=== PATIENT | female | born 1970 | race Caucasian/White ===

== ENCOUNTER 2020-03-06 08:05 | Outpatient (CLI) | payer OTHER, SELFPAY ==
--- NOTE | ~2020-03-06 | XR_ITS ---
EXAMINATION: XR wrist LT min 3V DATE: 03/06/2020 08:46 INDICATION: Left wrist pain. TECHNIQUE: 4 views of left wrist were obtained. COMPARISON: None. FINDINGS: Bone alignment is normal. No fracture. There is mild osteoarthritis of first carpometacarpa l joint. IMPRESSION: 1. Mild osteoarthritis of first carpometacarpal joint. Reviewed, dictated and finalized at location A. [employer] DIRECTOR
== END 2020-03-06 08:06 | disposition home or self-care (01) ==
PROVIDERS: PCP Internal Medicine; Visit Provider Nurse Practitioner
DX: M18.12 Unilateral primary osteoarthritis of first carpometacarpal joint, left hand (principal)
CPT/HCPCS: 73110

== ENCOUNTER 2022-10-12 17:48 | Emergency (ER) | payer OTHER, SELFPAY ==
[2022-10-12 17:57] VITALS: BP 126/90; PULSE 65; RESP 16; TEMP 36.4; O2SAT 98
--- NOTE | 2022-10-12 18:22 | ED.DIZZY ---
HPI - Dizziness General Chief Complaint: Dizziness Stated Complaint: Dizziness History of Present Illness HPI Narrative: 52-year-old female presents to the [facility] complaining of dizziness. Patient stated her symptoms started yesterday when she felt like the room was spinning. Patient states that dizziness is worse when she bends over. Patient also reports that ear tinnitus however that tinnitus is a chronic condition that she is seeing a ENT for in the past. Patient was recommended to get an MRI of her left ear by her ENT but she decided not to. Patient states she was seen any ENT near her work because it was more convenient for her and when the wound order outpatient imaging eyes is going to be more of it inconvenient for her. Patient states she would prefer to see an ENT more local however the 1 that she was referred to had a long wait time for an appointment and saw the ENT near her work first. Patient denies any headache, blurry vision, numbness, slurred speech, confusion, chest pain, lightheadedness, focal weakness, ear fullness, ear pain, fevers, or any other symptoms. Patient states she has never been diagnosed with vertigo but she states she has dealt with dizziness in the past. Related Data Home Medications Medication Instructions Recorded Confirmed cholecalciferol (vitamin D3) 125 125 mcg PO .COMPLEX 02/22/20 10/12/22 mcg (5,000 unit) capsule fluticasone propionate 50 1 spray intranasal Q12H 10/12/22 10/12/22 mcg/actuation nasal spray,suspension (Flonase Allergy Relief) Allergies Allergy/AdvReac Type Severity Reaction Status Date / Time No Known Allergies Allergy Verified 10/12/22 18:04 Review of Systems Review of Systems: CONSTITUTIONAL: Denies fever, chills, or sweats. EYES: Denies visual changes, redness, or discharge. ENT: Denies otalgia, ear fullness, and sore throat. Positive for left ear tinnitus. CARDIOVASCULAR: Denies chest pain, palpitations, or edema. RESPIRATORY: Denies cough or dyspnea. GASTROINTESTINAL: Denies abdominal pain, nausea, vomiting, or diarrhea. GENITOURINARY: Denies dysuria or hematuria. SKIN: Denies rash or itching. MUSCULOSKELETAL: Denies back pain, joint pain, or myalgia. NEUROLOGIC: Denies headache, numbness, or weakness. Positive for dizziness. Pertinent positives per HPI. [facility] Past Medical History Medical History (Updated 10/12/22 @ 18:29 by Zenaida Greco APRN) De Quervain's disease (radial styloid tenosynovitis) Family History Family History Father Tongue cancer Social History Social History Smoking packs per day: 0.5 Smoking cigarettes per day: 10.0 Years smoked: 30 Smoking pack-years: 15.00 Smoking status: Current every day smoker Tobacco type: cigarettes Alcohol intake: never Substance use: never Gender identity (if verbalized by the patient): Female Comments At the time of my signature, I reviewed and agree with the nursing past medical, surgical, social, and family history. There is no relevant family history pertinent to the patient complaint. Exam Narrative: GENERAL: This is a well-nourished, well-developed patient, in no apparent distress. HEAD: normocephalic, atraumatic. EYES: Sclera clear/white. Vision is grossly intact. No nystagmus present. EARS: External ears normal, auditory canals patent with moderate amount of cerumen present without impaction without drainage, TMs normal without perforation. Hearing grossly intact. NOSE: External nose normal with no obvious nasal discharge, nares without redness, no rhinorrhea. THROAT: Mucous membranes moist, posterior pharynx clear. NECK: Neck supple, non-tender without lymphadenopathy, masses or thyromegaly. CARDIOVASCULAR: Regular rate and rhythm without murmurs, gallops, or rubs. RESPIRATORY: Clear to auscultation. Breath sounds equal bilaterally. No whe
== END 2022-10-12 18:32 | disposition home or self-care (01) ==
PROVIDERS: Emergency Provider Nurse Practitioner Family; PCP Internal Medicine
DX: R42 Dizziness and giddiness (principal); F17.210 Nicotine dependence, cigarettes, uncomplicated
CPT/HCPCS: 99213; G0463

== ENCOUNTER 2022-12-16 07:45 | Outpatient (CLI) | payer OTHER, SELFPAY | END 2022-12-16 07:46 | disposition home or self-care (01) | LOC: ANHBWCAUD 07:46 | PROVIDERS: PCP Internal Medicine; Visit Provider Otolaryngology | DX: H93.12 Tinnitus, left ear (principal) | CPT/HCPCS: 99199 ==

== ENCOUNTER 2024-03-10 08:34 | Outpatient (CLI) | payer OTHER, SELFPAY ==
--- NOTE | ~2024-03-10 | US_ITS ---
EXAMINATION: US pelvic complete w TV INDICATION: Bloating. Comparison:No prior studies for comparison. TECHNIQUE: Multiple transabdominal and endovaginal sonographic images of the pelvis performed. FINDINGS: The uterus measures 5.3 x 3.6 x 2.1 cm. The endometrial complex measures 2 mm. The ovaries are not visualized. There is no free fluid in the pelvis. There are no abnormal masses s een on either side. IMPRESSION: 1. Unremarkable pelvic ultrasound. Reviewed, dictated and finalized at location B. L DEALER
== END 2024-03-10 08:35 | disposition home or self-care (01) ==
PROVIDERS: PCP Nurse Practitioner; Visit Provider Nurse Practitioner
DX: R14.0 Abdominal distension (gaseous) (principal)
CPT/HCPCS: 76830; 76856

== ENCOUNTER 2024-12-04 07:46 | Outpatient (CLI) | payer OTHER, SELFPAY | END 2024-12-04 07:47 | disposition home or self-care (01) | LOC: ANHAUDIO 07:46 | PROVIDERS: PCP Internal Medicine; Visit Provider Otolaryngology | DX: H91.8X3 Other specified hearing loss, bilateral (principal) | CPT/HCPCS: 92557; 92567 ==